=== PATIENT | female | born 1950 | race Caucasian/White ===

== ENCOUNTER → 2018-01-31 | Outpatient (CLI) | payer MEDICARE, OTHER ==
[~2018-01-31] MED LIST: ASPIRIN325 PO; CLONAZEPAM 0.50.5 M1 PO; COLACE100 MG PO; LEVAQUIN 250 M250 MG PO; NORCO 5-325 TA1 EACH PO; OXYCODONE HCL 55 MG PO; PROTONIX40 M1 PO; SERTRALINE HCL50 MG PO; SIMVASTATIN40 MG PO; TRAZODONE HCL50 MG PO; XARELTO10 MG PO
== END ==
LOC: M.MRI 10:52
DX: M71.22 Synovial cyst of popliteal space [Baker], left knee (principal)

== ENCOUNTER 2019-05-19 05:58 | Inpatient (IN) | payer MEDICARE, OTHER ==
[2019-05-08 11:04] LABS: ABSOLUTE EOSINOPHILS 0.1 thou/uL (0.0-0.7); ABSOLUTE LYMPHOCYTES 2.7 thou/uL (0.8-5.3); ABSOLUTE MONOCYTES 0.5 thou/uL (0.0-1.2); BASOPHILS 0.6 %; EOSINOPHILS 1.8 %; HEMATOCRIT 39.8 % (37.0-47.0); HEMOGLOBIN 13.6 gm/dL (12.0-15.0); MCH 31.9 pg (26.0-34.0); MCHC 34.1 g/dL (28.0-37.0); MCV 93.6 fL (80.0-100.0); MPV 8.4 fl. (7.2-11.1); NUCLEATED RBCS 0 /100WBC; PLATELET COUNT* 223 thou/uL (150-400); POLYS 47.6 %; RBC 4.25 mil/uL (4.20-5.00); RDW-CV 12.9 % (10.5-14.5); WBC 6.3 thou/uL (4.0-11.0)
[2019-05-08 11:16] LABS: CALCIUM 9.2 mg/dL (8.5-10.1); CREATININE 0.8 mg/dL (0.6-1.3); POTASSIUM 4.2 mmol/L (3.5-5.1)
[2019-05-08 11:17] LABS: APTT 26.3 Seconds (25.0-31.3); INR 0.9; PROTIME 9.6 Seconds (9.20-11.50)
[2019-05-08 11:21] LABS: ALBUMIN 3.8 g/dL (3.4-5.0); TOTAL BILIRUBIN 0.1 mg/dL (<0.1-1.0); TOTAL PROTEIN 7.2 g/dL (6.4-8.2)
[2019-05-08 12:03] LABS: ESR (SEDRATE) 16 mm/hr (0-30)
--- NOTE | 2019-05-08 13:25 | EKG ---
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 : 1950 Requested By: Bc Mcginnis Order Number: [id number] Misa MD: Anderson Dubose Measurements Intervals [place] Rate: 52 P: 56 DE: 140 QRS: 84 QRSD: 106 T: 80 QT: 434 QTc: 404 Interpretive Statements Sinus rhythm Borderline right axis deviation Borderline repolarization abnormality Compared to ECG 02/03/2016 09:23:34 No significant changes Electronically Signed On 05-08-2019 13:25:51 CDT by Anderson Dubose [email or web address] <ELECTRONICALLY SIGNED> By: Anderson Dubose MD, [facility] 05/08/19 1325 0941 09 Anderson Dubose MD, FACC /EPI
[~2019-05-19] VITALS: Ht 162.6 cm; Wt 76.2 kg
--- NOTE | ~2019-05-19 | H ---
[address] [address] HISTORY AND PHYSICAL Name: DALJIT OSEGUERA Room: [address] ..#: [id number] Admission: 05/19/19 Attend Phys: Mackenzie Taylor Discharge: Date of : 52 Report #: [id number] THIS REPORT FOR: //name// For History and Physical please refer to the consultation note in the patient's medical record. By: [facility]3Medical Records Staff ARABELLA /ARYAN
[~2019-05-19 05:58] MED LIST changes: +NEXIUM40 MG PO; +ONDANSETRON HCL4 M2 PO
[2019-05-19 06:23] VITALS: BP 119/64
[2019-05-19 10:55] VITALS: BP 113/52
[2019-05-19 16:00] VITALS: BP 131/62
[2019-05-19 20:44] VITALS: BP 124/62
[2019-05-20 00:05] VITALS: BP 111/55
[2019-05-20 04:27] VITALS: BP 101/46
[2019-05-20 04:59] LABS: HEMATOCRIT 34.5 % (37.0-47.0); HEMOGLOBIN 11.7 gm/dL (12.0-15.0)
[2019-05-20 08:50] VITALS: BP 110/53
[2019-05-20 20:12] VITALS: BP 158/72
[2019-05-20 23:45] VITALS: BP 149/67
[2019-05-21 04:00] VITALS: BP 119/59
[2019-05-21 04:24] LABS: HEMATOCRIT 34.4 % (37.0-47.0); HEMOGLOBIN 11.6 gm/dL (12.0-15.0)
[2019-05-21 08:00] VITALS: BP 115/52
[2019-05-21] MEDS ORDERED: COLACE 100 MG100 MG PO (08:12)
[2019-05-21] MEDS ORDERED: TRAMADOL 50 MG50 MG PO (08:12)
[2019-05-21] MEDS ORDERED: ELIQUIS5 MG PO (08:12)
[2019-05-21] MEDS ORDERED: OXYCODONE HCL 55 MG PO ×2 (08:13→16:25)
[2019-05-21 13:33] VITALS: BP 115/52
[2019-05-21 16:05] VITALS: BP 118/52
[2019-05-21 16:42] VITALS: BP 115/52
[2019-05-21 17:16] VITALS: BP 115/52
--- NOTE | 2019-06-09 10:50 | OP ---
[address] [address] OPERATIVE REPORT Name: DALJIT OSEGUERA Room: [address] IN [facility]#: [id number] Admission: 05/19/19 Attend Phys: Mackenzie Taylor Discharge: 05/21/19 Date of : 52 Report #: [id number] THIS REPORT FOR: //name// CC: Su Vázquez DICTATED BY: Simón Poole DO DATE OF SERVICE: 05/19/2019 PREOPERATIVE DIAGNOSIS: Left knee severe degenerative joint disease. POSTOPERATIVE DIAGNOSIS: Left knee severe degenerative joint disease. OPERATION PERFORMED: Left total knee arthroplasty. SURGEON: Bc Mcginnis DO ASSISTANTS: Simón Poole DO and Augustus Lim DO ESTIMATED BLOOD LOSS: 100 mL. ANTIBIOTICS: 2 g IV Ancef given within 1 hour of incision ANESTHESIA: General. DRAINS: None. SPECIMENS: None. COMPLICATIONS: None. CONDITION: Stable. DISPOSITION: PACU to orthopedic floor. IMPLANTS: The Lauren Persona total knee system was used. Following components: 1. A size 5 cruciate retained femoral component. 2. A size E tibial component. 3. A size 29 mm patellar component. 4. A 12 mm medial congruent articular surface, also 2 bags of Palacos bone cement were utilized. INDICATIONS FOR PROCEDURE: This patient is a pleasant 68-year-old female who is followed in orthopedic clinic regarding her longstanding left knee pain. She had radiographic evidence of severe degenerative joint disease with loss of [facility] [address] [place] [address] OPERATIVE REPORT Name: DALJIT OSEGUERA YANET Room: [address] IN [facility].#: [id number] Admission: 05/19/19 Attend Phys: Mackenzie Taylor Discharge: 05/21/19 Date of : 52 Report #: [id number] joint space, subchondral sclerosis, osteophytic lipping. She had continued pain and debility despite conservative treatment in the form of activity modifications, physical therapy, bracing, anti-inflammatories and intraarticular injections as well as multiple arthroscopic procedures. We therefore then discussed with her other treatment options including total knee arthroplasty. Risks, indications and treatment alternatives were also reviewed with the patient in agreement and her informed consent was signed. DESCRIPTION OF PROCEDURE: The patient was taken to the operating suite and placed on operating table in supine position where general anesthesia was then induced. A well-padded tourniquet was placed on the left proximal thigh, this was inflated at 300 mmHg for a total of 57 minutes throughout the procedure. Left lower extremity was then sterilely prepped with ChloraPrep and then draped free in the usual fashion. A time-out was then performed to confirm that her safety checklist had been completed, all of the OR personnel was in agreement. A standard midline incision was marked out over the anterior aspect of the knee. The tourniquet was inflated. Sharp dissection was carried down through the skin and subcutaneous tissue down to the level of the extensor mechanism and capsule. A new blade was then used to make the standard medial parapatellar arthrotomy. The infrapatellar fat pad was excised. A Hohmann retractors were placed, we gained access to the femur intramedullary canal with the drill at this point. The distal femur cutting block was then placed on the intramedullary guide, set to resect 10 mm from the distal femur at a 5-degree valgus cut. Cutting block was pinned into position and the cut was checked with the flor wing. The cut was then made through the capture block. A bony wafer was removed. We then proceeded to the tibial side, where the extramedullary tibial guide was aligned in all planes and pinned into position. Collateral ligaments, patellar tendon was protected as was the popliteal structures with retractors. The tibial cut was then made with a reciprocating saw through the capture block, a bony wafer was then removed. This was a 10 mm from the lateral side and it was inspected and found to be in appropriate size cut. We then proceeded to check our extension block, 10 mm spacer fit well, therefore the pins were removed. We then proceeded to sizing the distal femur from anterior to posterior with the sizing guide, 3-degree external rotation holes were drilled. The 4-in-1 cutting block was then pinned onto the distal femur. We began with an anterior cut, which gave a nice flush cut with anterior cortex with a grand-piano sign. We proceeded with the posterior condylar, followed by the anterior and posterior chamfer cuts. Cutting block was then removed as were the bony wafers. At this time, we removed the remaining osteophytes as well as the meniscal structures and ACL, which remained. The knee was hyperflexed and the tibial plateau was sized to the appropriate size. The trial baseplate was pinned into position. A trial femur was also impacted. We then trialed multiple different sizes of spacers and ultimately, a 12 mm spacer was found to give full range of motion with excellent stability in all planes. We then proceeded with resurfacing the patellar component, it was first denervated with electrocautery. It was then cut with a freehand technique resecting [address] [place] [address] OPERATIVE REPORT Name: DALJIT OSEGUERA Room: [address] IN [facility]#: [id number] Admission: 05/19/19 Attend Phys: Mackenzie Taylor Discharge: 05/21/19 Date of : 52 Report #: [id number] peg holes were then drilled through the guide and the patellar button was placed and found to be tracking appropriately. At this time, the components were prepared for final implantation. The femur was drilled through the trial component. The tibial component was reamed and punched and then all the trial components were removed. The bony cut surfaces were copiously irrigated. The anesthetic cocktail was injected into the posterior capsular structures. The bone cement was mixed on the back table and applied to the undersurface of the final components. The bony cut surfaces were dried and the final components were impacted into position, beginning with the tibia, followed by the femur and finally, the patellar component, which was clamped into position. The excess bone cement was removed throughout. A 12 mm spacer was placed and the knee was then brought into full extension. Compression was applied while the cement was allowed to completely harden. Once again, we trialed a 12 mm spacer and it was appropriate, therefore we did remove this. The knee was copiously irrigated. All the excess bone cement was once again removed. The final 12 mm spacer was implanted and locked into position. The knee was taken through final range of motion, knee was found to have 0-135 degrees of motion with excellent stability in both the sagittal and coronal planes. The knee was irrigated and a layered closure was performed again with #1 Vicryl suture in [id number] fashion on the extensor mechanism. This was then oversewn with the #1 Quill suture. Subcutaneous layer was then reapproximated with the 2-0 Vicryl suture in a buried fashion. A 3-0 Stratafix suture on the subcuticular layer. Skin glue was applied to the incision and allowed to dry. Mepilex bandage was applied followed by thigh high MARCELLA hose. The patient was found to tolerate the procedure well and was transferred to the PACU in stable condition with no apparent complications. Sponge and needle counts reported correct per the OR personnel. ATTESTATION: Dr. Bc Mcginnis was present for all the critical aspects of surgery. <ELECTRONICALLY SIGNED> By: Bc Mcginnis DO 06/09/19 1050 0931 [id number] New Mcginnis DO /nt
== END 2019-05-21 17:24 | disposition home health service (06) | DRG 470 ==
LOC: M.SUR 05:58 → M.TBA 09:31 → M.3W 09:31 → M.SUR 10:13 → M.3W 10:55
PROVIDERS: Orthopaedic Surgery; ADMIT Internal Medicine
PROC: 0SRD0J9 Replacement of Left Knee Joint with Synthetic Substitute, Cemented, Open Approach (ICD-10-PCS; principal; 2019-05-19)
DX: M17.12 Unilateral primary osteoarthritis, left knee (principal); F41.9 Anxiety disorder, unspecified; E78.5 Hyperlipidemia, unspecified; K21.9 Gastro-esophageal reflux disease without esophagitis; F32.9 Major depressive disorder, single episode, unspecified; Z91.041 Radiographic dye allergy status; Z90.49 Acquired absence of other specified parts of digestive tract